=== PATIENT | male | born 1990 | race Caucasian/White ===

== ENCOUNTER 2017-02-11 03:10 | Emergency (ER) | payer MEDICAID ==
[~2017-02-11] VITALS: Ht 167.6 cm; Wt 76.2 kg
--- NOTE | 2017-02-11 03:20 | NUR ---
To bed 7 a 27 yo male bibself with c/o n/v x2 days, "I can't keep anything down." Patient also reports abdominal pain, "behind my stomach" at 7/10, and shivering with fever." Patient is aaox3, ambulatory, no s/s of acute distress. Nondiaphoretic. 99.3F from temporal scan. VSS. Gowned. Initiated comfort measures. Awaiting for er md gallego.
--- NOTE | 2017-02-11 03:22 | NUR ---
Dr Boggs at bedside for eval.
[2017-02-11] MEDS ORDERED: ONDANSETRON 4 MG TAB.RAPDIS ONE (03:47)
--- NOTE | 2017-02-11 03:53 | NUR ---
Patient refused IV insertion, Dr Boggs at bedside at this time.
[2017-02-11] MEDS ORDERED: PANTOPRAZOLE 40 MG TABLET.DR PO ONE ×2 (03:59→04:00)
[2017-02-11] MEDS ORDERED: ONDANSETRON HCL/PF 4 MG/2 ML VIAL IVP ONE (04:00)
[2017-02-11] MEDS ORDERED: HYDROMORPHONE INJ 2 MG/ML DISP.SYRIN IV ONE (04:00)
[2017-02-11] MEDS ORDERED: DICYCLOMINE HCL INJ 20 MG/2 ML AMPUL IM ONE (04:00)
[2017-02-11] MEDS ORDERED: ONDANSETRON 4 MG TAB.RAPDIS SL ONE (04:00)
[2017-02-11] MEDS ORDERED: IV NS 0.9% 1,000 ML BAG IV ONE (04:00)
[2017-02-11] MEDS ORDERED: PANTOPRAZOLE 40 MG VIAL IV ONE (04:00)
--- NOTE | 2017-02-11 04:18 | NUR ---
Patient discharged to home in stable condition. Written and verbal after care instructions given. Patient verbalizes understanding of instruction. Patient is ambulatory with a steady gait.
[2017-02-11 04:35] VITALS: BP 130/81
== END 2017-02-11 04:36 | disposition home or self-care (01) ==
LOC: ER 03:12
DX: R19.7 Diarrhea, unspecified (principal); R10.84 Generalized abdominal pain; R11.2 Nausea with vomiting, unspecified; Z59.0 Homelessness
CPT/HCPCS: A4606; Q0162; Z7610